=== PATIENT | female | born 1955 | race African-American/Black ===

== ENCOUNTER 2016-03-18 19:50 | Emergency (ER) | payer OTHER ==
[~2016-03-18 19:50] MED LIST: ATEN100T PO; METH750T3 PO; NPR500T PO
[2016-03-18 20:02] VITALS: BP 141/96; PULSE 106; RESP 18; O2SAT 97
[2016-03-18 21:23] LABS: BASOPHILS % (AUTO) 0.4 % (0-3); MONOCYTES % (AUTO) 6.3 % (4-12); Mean Corpuscular Hemoglobin 29.9 pg (27.0-35.0); Mean Corpuscular Volume 88.7 fL (81-100); NEUTROPHILS % (AUTO) 54.7 % (40-74); Platelet Count 180 bil/L (150-400)
[2016-03-18 22:25] VITALS: BP 138/90; PULSE 92; RESP 16; O2SAT 98
--- NOTE | 2016-03-18 22:33 | ED.REPORT ---
HPI-General Illness Date of Service Mar 18, 2016 ED Provider: Marv Barber MD Patient is a 60 year old female with a history of hypertension and borderline diabetes mellitus who presents to the ED after she developed weakness and generally felt unwell today. She reports associated dizziness, light headedness , double vision, numbness in her fingertips, nausea, and decreased appetite. The patient reports increased urination for the past week, getting up 7x times per night to urinate. Patient realizes that this is probable due to elevated blood sugars, with her sugar measuring at 451 on intake to the ED. She reports being a borderline diabetic, but chose to manage her disease with diet changes. Patient admits that she is meant to be checking her blood sugar at home, but she has forgotten to do so. The patient is unable to schedule an appointment with her doctor, Dr. Walton, until April 18. She denies chest pain, shortness of breath, or fever. Nursing Notes Stated Complaint: VISION BLURRY, NOT FEELING WELL,NUMBNESS IN FINGER Chief Complaint: Neuro Symptoms/ Deficits Nursing Notes Reviewed: Yes Allergies: Coded Allergies: No Known Allergies (Verified Allergy, Unknown, 03/18/16) Scheduled Atenolol (Atenolol) 100 Mg Tablet 100 MG PO DAILY Cephalexin (Keflex) 500 Mg Capsule 500 MG PO TID Metformin (Metformin) 500 Mg Tablet 500 MG PO BID Scheduled PRN Methocarbamol (Methocarbamol) 750 Mg Tablet 750 MG PO QID PRN PRN For Spasm Naproxen (Naproxen) 500 Mg Tab 500 MG PO BID PRN PRN For Pain General Time Seen by MD: 22:32 Chief Complaint Not feeling well Hx Obtained From: Patient Arrived By: Walk-in Sudden in Onset?: No Onset Occurred: 13 - 16 hours ago Symptom Duration: Since onset Severity: Current: No pain currently Severity: Maximum: No pain Recent Healthcare: No recent doctor visit, No recent hospitalization Similar Sx Previous: No Past Medical History Past Medical History borderline diabetes mellitus Reports: Hypertension Past Surgical History trigger finger, kidney stones, aneursym, menigitis Cervical Fusion 01/28 Smoking History Former Smoker Social History Alcohol Use: "Social" Drug Use: Denies drug use Other Social History: Good social support, Local resident Occupation lives with daughter and grandson. Ambulatory Status Independent Review of Systems Full Review of Systems Constitutional: Reports: Weakness - generalized, Denies: Fever Eyes: Reports: Diplopia Respiratory: Denies: Shortness of breath Cardiovascular: Denies: Chest pain GI: Reports: Nausea, Denies: Vomiting Female: Reports: Urinary urgency, Urination increased Neurologic: Reports: Dizziness, Lightheaded, Numbness (in fingertips) Complete sys rev & neg: except as marked. Physical Exam Vital Signs Vital Signs Date Time Temp Pulse Resp B/P Pulse Ox O2 Delivery O2 Flow Rate FiO2 03/19/16 00:59 36.8 92 16 138/94 98 Room Air 03/18/16 22:25 92 16 138/90 98 Room Air 03/18/16 20:02 37.8 106 18 141/96 97 Room Air Initial VS: Reviewed Neck: Supple, Full range of motion Respiratory: Breath sounds normal, Clear to auscultation, No respiratory distress Cardiovascular: Regular rate & rhythm, Heart sounds normal Abdomen / GI: Soft, Non-tender, No guarding, No rebound Extremities: Vascular intact, Neuro intact, No swelling Skin: Warm, Dry, No cyanosis Neurologic: Alert, Oriented, Nonfocal Psychiatric: Mood/affect normal, Behavior normal, Normal thought content General/Constitutional: Awake, Alert, No acute distress Distress / Hydration: Positive: Dehydration mild Appearance / Presentation: Positive: Obese Head / Eyes: Normocephalic, PERRL, EOMI ENT: Airway patent Mouth: Positive: Mucous membranes dry (mild) Interpretation & Diagnostics Lab Results Interpretation Result Diagram: 03/18/16210903/18/162109 Test 03/18/16 21:10 03/18/16 22:25 03/18/16 22:38 White Blood Count 11.4th/mm3 (3.8-10.1) Red Blood Count 5.12mil/mm3 (3.90-5.20) Hemoglobin 15.3g/dL (12.0-15.6) Hematocrit 45.4% (35.0-46.0) Mean Corpuscular Volume 88.7fL (81-100) Mean Corpuscular Hemoglobin 29.9pg (27.0-35.0) Mean Corpuscular Hemoglobin Concent 33.7% (32.0-37.0) Red Cell Distribution Width 12.0% (12.3-15.4) Platelet Count 180bil/L (150-400) Neutrophils (%) (Auto) 54.7% (40-74) Lymphocytes (%) (Auto) 37.4% (14-46) Monocytes (%) (Auto) 6.3% (4-12) Eosinophils (%) (Auto) 1.0% (0-5) Basophils (%) (Auto) 0.4% (0-3) Sodium Level 130mEq/L (134-144) Potassium Level 3.9mEq/L (3.5-5.2) Chloride Level 91mEq/L (97-108) Carbon Dioxide Level 22mmol/L (18-29) Blood Urea Nitrogen 19mg/dL (6-24) Creatinine 1.06mg/dL (0.57-1.00) Estimat Glomerular Filtration Rate 68mL/min (>59) Glucose Level 478mg/dL (60-99) Calcium Level 9.3mg/dL (8.5-10.1) Total Bilirubin 0.7mg/dL (0.0-1.2) Aspartate Amino Transf (AST/SGOT) 94U/L (0-50) Alanine Aminotransferase (ALT/SGPT) 99U/L (0-32) Alkaline Phosphatase 150U/L (25-165) Total Protein 9.3g/dL (6.4-8.4) Albumin 3.8g/dL (3.4-5.0) Urine Color Yellow (YELLOW) Urine Appearance Hazy (CLEAR,HAZY) Urine pH 5.5 (5.0-8.0) Urine Specific [place] 1.015 (1.003-1.035) Urine Protein Negativemg/dL (NEG,TRACE) Urine Glucose (UA) 1000mg/dL (NEGATIVE) Urine Ketones Negativemg/dL (NEGATIVE) Urine Occult Blood Small (NEGATIVE) Urine Nitrite Negative (NEGATIVE) Urine Bilirubin Negative (NEGATIVE) Urine Urobilinogen Normalmg/dL (NORMAL) Urine Leukocyte Esterase Negative (NEGATIVE) Urine RBC 3-10/hpf (0-2) Urine WBC 6-10/hpf (0-5) Urine Epithelial Cells Moderate/hpf (NONE-MOD) Urine Crystals None seen (NONE SEEN) Urine Bacteria Moderate/hpf (NONE-FEW) Urine Hyaline Casts Occasional/lpf (NONE) Urine Granular Casts None seen (NONE SEEN) Urine Waxy Casts None seen (NONE SEEN) Urine Red Blood Cell Casts None seen (NONE SEEN) Urine White Blood Cell Casts None seen (NONE SEEN) Urine Mucus Present (None Seen) Urine Trichomonas None seen (NONE SEEN) Urine Yeast None (NONE SEEN) Urinalysis Comment None Urine Culture Reflexed Indicated Hold Urine Received (Received) Re-Eval/Medical Decision Med Decision/Clinical Course 60-year-old "prediabetic" presents with blurred vision polyuria polydipsia generalized malaise. Her sugars are in the 400s. No evidence of acidosis or other immediate issues. She does have a mild UTI. We will treat that empirically with Keflex based on local antibiogram for Escherichia coli sensitivity. Begun with metformin 500 twice a day, and referred back to her PCP for ongoing evaluation and management. Hemoglobin A1c is pending. Source of Hx: Old records Time of Eval: 00:08 Patient Status: Condition improved Re-Evaluation/Progress Note: Discussed the patient's lab results further. Patient understands and agrees with the plan to be discharged home. Discharge instructions and follow-up discussed. All questions were addressed. Return to the ED warnings given. Counseled Regarding: Diagnosis, Lab results, Need for follow-up, When/why to return to ED Discharge & Departure Primary Impression: Diabetes mellitus Diabetes mellitus type: type 2 Diabetes mellitus complication status: with unspecified complications Qualified Code: E11.8 - Type 2 diabetes mellitus with unspecified complications Additional Impressions: Hyperglycemia Urinary tract infection Urinary tract infection type: acute cystitis Hematuria presence: without hematuria Qualified Code: N30.00 - Acute cystitis without hematuria Disposition: Home Discharge Condition All VS Reviewed: Yes Condition: Stable Patient Instructions: Diabetes Mellitus Type 2 in Adults (ED), Urinary Tract Infection in Women (ED) Additional Instructions: See her doctor as soon as possible. We will send this note to her to expedite your next visit. Keflex three times daily for seven days for urinary tract infection Begin metformin twice daily. Refer to diabetic diet. Return here if any immediate issues. Referrals: Ladonna Walton MD (PCP) Brent Attestation Portions of this note were transcribed by Raquel Foster. I, Dr. Barber personally performed the history, physical exam and medical decision-making; I reviewed and confirmed the accuracy of the information in the transcribed note. Signed by: Brent Cardona, 03/19/2016 0013 copies to: Ladonna Walton MD, Christopher W MD Mar 18, 2016 22:32 Raquel Foster Mar 18, 2016 22:42
[2016-03-18] MEDS ORDERED: 0.9% Sodium Chloride 1,000 ML IV ONE (22:40)
[2016-03-18] MEDS ORDERED: Ondansetron 2 mg/mL 2 mL Inj IVPUSH ONE (22:40)
[2016-03-18 23:35] LABS: APPEARANCE,URINE HAZY (CLEAR,HAZY); COLOR,URINE YELLOW (YELLOW); PH,URINE 5.5 (5.0-8.0)
[2016-03-18 23:36] LABS: OCCULT BLOOD,URINE SMALL (NEGATIVE); UROBILINOGEN,URINE NORMAL (NORMAL)
[2016-03-19] MEDS ORDERED: METF500T4 PO (00:03)
[2016-03-19] MEDS ORDERED: CEPH-512 PO (00:04)
[2016-03-19 00:59] VITALS: BP 138/94; PULSE 92; RESP 16; O2SAT 98
== END 2016-03-19 00:59 | disposition home or self-care (01) ==
LOC: SED 19:50
DX: E11.65 Type 2 diabetes mellitus with hyperglycemia (principal); N30.00 Acute cystitis without hematuria; B96.20 Unspecified Escherichia coli [E. coli] as the cause of diseases classified elsewhere; I10 Essential (primary) hypertension; Z87.891 Personal history of nicotine dependence; Z79.84 Long term (current) use of oral hypoglycemic drugs
CPT/HCPCS: 36415; 80053; 81000; 82948; 83036; 85025; 87086; 87088; 87186; 96374; 99284; J2405; J7030

== ENCOUNTER 2016-11-08 11:24 | Emergency (ER) | payer OTHER ==
[~2016-11-08] VITALS: Ht 152.4 cm; Wt 95.0 kg
[~2016-11-08 11:24] MED LIST changes: +CEPH-512 PO; +METF500T4 PO
--- NOTE | 2016-11-08 11:36 | ED.REPORT ---
HPI-Rash / Abscess Date of Service Nov 08, 2016 ED Provider: Edmundo Alex MD A 61 year old female with a history of diabetes and hypertension presents to the ED complaining of an abscess. The pt noticed the abscess one week ago, which began as a small pimple. The area soon became red and painful and is now draining purulent material. She also complains of a rash of "small bumps" on her bilateral arms but denies fever or vomiting. Nursing Notes Stated Complaint: ABSCESS Nursing Notes Reviewed: Yes Allergies: Coded Allergies: No Known Allergies (Verified Allergy, Unknown, 11/08/16) Scheduled Atenolol (Atenolol) 100 Mg Tablet 100 MG PO DAILY Cephalexin (Keflex) 500 Mg Capsule 500 MG PO TID Metformin (Metformin) 500 Mg Tablet 500 MG PO BID Sulfamethoxazole/Trimeth 800-160 mg (Bactrim DS) 1 Each Tablet 1 TABLET PO BID Scheduled PRN Methocarbamol (Methocarbamol) 750 Mg Tablet 750 MG PO QID PRN PRN For Spasm Naproxen (Naproxen) 500 Mg Tab 500 MG PO BID PRN PRN For Pain General Time Seen by MD: 11:30 Chief Complaint Abscess Hx Obtained From: Patient Arrived By: Walk-in Onset Occurred: 1 week ago Symptom Duration: Since onset Recent Healthcare: No recent doctor visit, No recent hospitalization Similar Sx Previous: No Past Medical History Past Medical History borderline diabetes mellitus Reports: Hypertension Past Surgical History trigger finger, kidney stones, aneursym, menigitis Cervical Fusion 01/28 Smoking History Former Smoker Social History Alcohol Use: "Social" Drug Use: Denies drug use Other Social History: Good social support, Local resident Occupation lives with daughter and grandson. Ambulatory Status Independent Review of Systems Review of Systems Note: abscess Constitutional: Denies: Fever Respiratory: Denies: Non-productive cough, Shortness of breath Cardiovascular: Denies: Chest pain GI: Denies: Vomiting Skin: Reports Rash Complete sys rev & neg: except as marked. Physical Exam Initial Vital Signs Vital Signs (First) Date Time Temp Pulse Resp B/P Pulse Ox O2 Delivery O2 Flow Rate FiO2 11/08/16 11:38 36.7 86 16 117/81 99 Room Air Initial VS: Reviewed General/Constitutional: Awake, Alert Skin: Color NL, Warm, Dry small right abdominal wall abscess actively draining does not require I&D folliculitis on bilateral arms Head / Eyes: Normocephalic, PERRL, EOMI ENT: Atraumatic, Airway patent, Mucous membranes moist Respiratory / Chest: Atraumatic, Breath sounds NL, Breath sounds = bilat, No respiratory distress Cardiovascular: Heart rate NL, Regular rhythm, Heart sounds NL Upper Extremity / MS: Full range of motion, Neurologic intact, Vascular intact Lower Extremity / Pelvis / MS: Atraumatic, Full range of motion Neurologic: Oriented X3, Speech NL, No motor deficits, No sensory deficits Neck: Atraumatic, Supple, Full range of motion Abdomen: Soft, Non-tender Back: Atraumatic, Full range of motion Psychiatric: Affect NL, Mood NL Re-Eval/Medical Decision Med Decision/Clinical Course 61-year-old female history of diabetes presenting with right abdominal wall abscess. There is a very small less than half centimeter draining abscess right abdominal wall there is no surrounding fluctuance. There is very minimal surrounding erythema approximately 1 mm. Patient will be treated with oral antibiotics declines I&D. Return precautions given. Source of Hx: Old records Re-Evaluation/Progress : Time of Eval: 11:30 Patient Status: Condition improved Re-Evaluation/Progress Note: Pt informed of the diagnosis and plan for discharge during the initial interview. The pt understands and agrees with the plan. All questions are addressed at this time. Counseled Regarding: Diagnosis, Need for follow-up, When/why to return to ED Discharge & Departure Impression: Primary Impression: Abdominal wall abscess Disposition: Home Discharge Condition All VS Reviewed: Yes Condition: Stable Patient Instructions: Abscess (ED) Additional Instructions: Thank you for entrusting us with your care. Your evaluation was reassuring. Take Bactrim as prescribed. Call your primary care physician to arrange a follow up appointment in the next several days. Return to the emergency department if you develop any new or worsening symptoms such as redness, fever, swelling, or lack of drainage from the abscess. Referrals: Ladonna Walton MD (PCP) Scribe Attestation Portions of this note were transcribed by Myra Maharaj. I, Dr. Alex personally performed the history, physical exam and medical decision-making; I reviewed and confirmed the accuracy of the information in the transcribed note. copies to: Ladonna Walton MD, Ben M MD Nov 08, 2016 11:36 MYRA MAHARAJ Nov 08, 2016 12:20
[2016-11-08 11:38] VITALS: BP 117/81; PULSE 86; RESP 16; O2SAT 99
[2016-11-08] MEDS ORDERED: SULF1TAB7 PO (12:32)
[2016-11-08 12:36] VITALS: BP 117/81; PULSE 86; RESP 16; O2SAT 99
== END 2016-11-08 12:37 | disposition home or self-care (01) ==
LOC: SED 11:24
DX: L02.211 Cutaneous abscess of abdominal wall (principal); I10 Essential (primary) hypertension; Z79.84 Long term (current) use of oral hypoglycemic drugs; Z87.891 Personal history of nicotine dependence